=== PATIENT | female | born 1940 | race Caucasian/White ===

== ENCOUNTER 2017-02-21 16:02 | Inpatient (IN) ==
[2017-02-21] MEDS ORDERED: ASPIRIN PO STA (16:06)
[2017-02-21 16:41] LABS: MANUAL DIFF NEEDED? NO
[2017-02-21 16:43] LABS: BASO% 0.4 % (0.0-0.8); EOS# 0.13 X1000 (0.0-0.7); EOS% 1.9 % (0.0-10.0); HEMATOCRIT 37.7 % (37.0-47.0); HEMOGLOBIN 12.4 g/dL (12.0-16.0); LYMPH# 1.15 X1000 (1.2-3.4); MCHC 32.9 g/dL (33-37); MCV 91.1 FL (81-99); MONO# 0.66 X1000 (0.11-0.59); MONO% 9.7 % (1.7-9.3); MPV 11.1 FL (7.4-10.4); PLT 189 X1000 (130-400); RBC 4.14 XMIL (4.2-5.4)
[2017-02-21 16:56] LABS: INR 0.99; PROTIME 10.4 Seconds (9.2-11.7)
--- NOTE | 2017-02-21 16:58 | Diag Imaging Result Document ---
PROCEDURE NAME: CHEST-2 VIEWS - 02/21/2017 FRONTAL AND LATERAL CHEST, 2 VIEWS: FINDINGS: The lungs are well expanded. Mild increased AP diameter to the chest. The heart is not enlarged. The pulmonary vessels are not distended. No pneumonia. No pleural effusions. No free air beneath the diaphragm. IMPRESSION: I believe the patient has emphysema, otherwise negative exam.
[2017-02-21 17:10] LABS: CALCIUM 9.3 mg/dL (8.8-10.2); MAGNESIUM 1.8 mg/dL (1.5-2.7); POTASSIUM 4.2 mmol/L (3.5-5.1); TOTAL BILIRUBIN 0.53 mg/dL (0.20-1.00); TOTAL PROTEIN 6.5 g/dL (6.3-8.3)
--- NOTE | 2017-02-21 17:46 | ED EKG INTERP ---
This chart was entered by Miley Lucia Scribe, acting as scribe for Leonidas Choudhary MD. EKG Interpretation - EKG Time of EKG reading by physician:: 16:11 EKG Read and Signed by:: Leonidas Choudhary EKG Interpretation (*Must complete 3 of following elements*): Abnormal Rate: 58 (nonspecific ST abnormality) Rhythm: sinus bradycardia This chart was documented by the indicated scribe, (Miley Lucia Scribe) and accurately reflects the services I performed and decisions made by me, Leonidas Choudhary MD, as attested by the provider's signature.
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
[2017-02-21] MEDS ORDERED: NS 1,000 ML IV SCH (18:44)
[2017-02-21] MEDS ORDERED: NITROGLYCERIN SL PRN (18:45)
[2017-02-21] MEDS ORDERED: ZOFRAN IV PRN (18:46)
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
[2017-02-21] MEDS: LOVENOX SUBQ SCH (20:39)
[2017-02-21] MEDS: LOPRESSOR PO SCH (20:50)
[2017-02-22 01:07] LABS: CK INDEX 12.2 (0.0-2.5); CK-MB 35.98 ng/mL (0.0-5.0)
[2017-02-22] MEDS ORDERED: PNEUMOVAX 23 IM ONE (01:34)
[2017-02-22 05:33] LABS: MANUAL DIFF NEEDED? NO
[2017-02-22 05:40] LABS: BASO% 0.4 % (0.0-0.8); EOS# 0.16 X1000 (0.0-0.7); HEMATOCRIT 36.4 % (37.0-47.0); HEMOGLOBIN 11.7 g/dL (12.0-16.0); LYMPH# 1.45 X1000 (1.2-3.4); LYMPH% 27.5 % (20.5-51.1); MCH 29.5 PG (27-31); MCHC 32.1 g/dL (33-37); MCV 91.7 FL (81-99); MONO# 0.57 X1000 (0.11-0.59); MONO% 10.8 % (1.7-9.3); MPV 11.8 FL (7.4-10.4); NEUT% 58.3 % (42.2-75.2); PLT 179 X1000 (130-400); RBC 3.97 XMIL (4.2-5.4)
[2017-02-22 06:04] LABS: AGAP 11; BUN 25 mg/dL (8-22); CALCIUM 8.5 mg/dL (8.8-10.2); CHLORIDE 109 mmol/L (98-107); COSMO 294; HDL 51 mg/dL (45-65); LDL 113 mg/dL; POTASSIUM 4.6 mmol/L (3.5-5.1); SODIUM 146 mmol/L (136-145); TCO2 26 mmol/L (25-35); TRIGLYCERIDES 87 mg/dL (35-135); VLDL 17 mg/dL
[2017-02-22 06:18] LABS: FREE T4 0.93 ng/dL (0.93-1.70); VITAMIN D 25 HYDROXY 31.3 NG/DL
[2017-02-22 06:24] LABS: CK INDEX 11.9 (0.0-2.5); CK-MB 31.52 ng/mL (0.0-5.0)
[2017-02-22] MEDS: PRILOSEC PO SCH (06:51)
[2017-02-22] MEDS: LOVENOX SUBQ SCH ×3 (08:46→22:20)
[2017-02-22] MEDS: ASPIRIN EC PO SCH (08:46)
[2017-02-22] MEDS: PRINIVIL PO SCH (08:46)
[2017-02-22] MEDS: LOPRESSOR PO SCH ×2 (08:46→21:43)
--- NOTE | 2017-02-22 14:06 | PROGRESS NOTE ---
DATE: 02/22/2017 SUBJECTIVE: The patient states that she had some mild chest pain overnight and earlier this morning. However right now she is chest pain-free. OBJECTIVE: Vital Signs: Temperature 97.8 degrees, blood pressure 118/48, heart rate 50, respirations 18, O2 saturations 100% on 2 L nasal cannula. General: This is an elderly female sitting up in bed eating breakfast. Head: Normocephalic, atraumatic. Heart: S1, S2. Normal. Regular rate and rhythm. Lungs: Clear to auscultation bilaterally. No wheezes, no rales. No rhonchi. Abdomen: Positive bowel sounds. Soft, nontender, nondistended. Extremities: No edema. No cyanosis. No calf tenderness. Neurologic: The patient is alert oriented x3. LABS: White blood cell count 5.2, hemoglobin 11, hematocrit 36, platelets 179,000. Sodium 146, potassium 4.6, chloride 109, CO2 26, BUN 25, creatinine 0.9, glucose 82. Troponin 0.92. LDL 113, total cholesterol 181. ASSESSMENT AND PLAN: 1. Non ST-elevation myocardial infarction. Continue on the current cardiac medications plus full dose Lovenox. Cardiology has been consulted for further recommendations. The patient is scheduled to undergo an echocardiogram today. 2. Hypertension. Controlled. 3. Gastrointestinal prophylaxis. Continue on Protonix. cc: Marcia Childs MD
[2017-02-23] MEDS: PRILOSEC PO SCH ×2 (05:50→06:29)
[2017-02-23] MEDS: LOVENOX SUBQ SCH (08:10)
[2017-02-23] MEDS: LOPRESSOR PO SCH ×2 (08:10→21:14)
[2017-02-23] MEDS: PRINIVIL PO SCH (08:10)
[2017-02-23] MEDS: ASPIRIN EC PO SCH (08:10)
[2017-02-23 09:38] LABS: AGAP 8; BUN 14 mg/dL (8-22); CHLORIDE 105 mmol/L (98-107); COSMO 282; POTASSIUM 4.5 mmol/L (3.5-5.1); SODIUM 141 mmol/L (136-145); TCO2 28 mmol/L (25-35)
--- NOTE | 2017-02-23 10:06 | ECHO REPORT ---
ORDER DATE: 02/22/2017 ECHOCARDIOGRAM: MEASUREMENTS: Left ventricular end-diastolic diameter 3.5, end systolic diameter 2.3, posterior wall thickness 1.1, septal thickness 0.8, left atrium 4.0, aortic root 2.4. SUMMARY: 1. Adequate quality study. 2. Trileaflet aortic valve demonstrates mild sclerosis and adequate opening with peak gradient of 10 mmHg. There is mild aortic regurgitation. Mitral, tricuspid, and pulmonic valves are without obstruction abnormality with trace mitral regurgitation and moderate tricuspid regurgitation. The estimated systolic PA pressure by Doppler is 45-50 mmHg. The aortic root is normal size. 3. Normal left ventricular dimensions demonstrated. Estimated left ventricular ejection fraction is 40%-45%. There is akinesis of the mid anteroseptal region, apical septum, apical anterior wall, and apex. Left atrium is borderline enlarged. Right atrium and right ventricle are of normal size with normal right ventricular systolic function. 4. No pericardial effusion. 5. Appearance of inferior vena cava suggests normal central venous pressure. 6. Sinus rhythm during study. CONCLUSIONS: 1. Aortic valve sclerosis without stenosis with mild aortic regurgitation. 2. Moderate tricuspid regurgitation with moderate pulmonary hypertension by Doppler. 3. Estimated left ventricular ejection fraction 40%-45% with akinesis in the mid anteroseptal region, apical septum, apical anterior wall, and apex. 4. Borderline left atrial enlargement. cc: MD Marcia Deutsch MD
--- NOTE | 2017-02-23 13:52 | PROGRESS NOTE ---
DATE: 02/23/2017 SUBJECTIVE: The patient is resting comfortably in bed. She denies having any shortness of breath or chest pain. OBJECTIVE: Vital Signs: Temperature 98 degrees, blood pressure 131/65, heart rate 57, respirations 18, O2 saturations 98% on 2 L nasal cannula. General: This is an elderly female lying in bed in no acute distress. Head: Normocephalic, atraumatic. Heart: S1, S2. Normal. Bradycardic. Lungs: Clear to auscultation bilaterally. No wheezes, no rales. No rhonchi. Abdomen: Positive bowel sounds. Soft, nontender, nondistended. Extremities: No edema. No cyanosis. No calf tenderness. Neurologic: The patient is alert, oriented x3. LABS: Sodium 141, potassium 4.5, chloride 105, CO2 28, BUN 14, creatinine 0.8, glucose 105. ASSESSMENT AND PLAN: 1. Non ST-elevation myocardial infarction. Continue on the current cardiac medications. Cardiology has been consulted. 2. Hypertension. Controlled. 3. Gastrointestinal prophylaxis. Continue on Protonix. cc: Marcia Childs MD
[2017-02-23] MEDS ORDERED: LOVENOX SUBQ ONE (18:00)
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
[2017-02-24] MEDS: NS 1,000 ML IV SCH ×3 (05:14→17:08)
[2017-02-24] MEDS: PRILOSEC PO SCH ×2 (05:15→06:35)
[2017-02-24 05:30] LABS: MANUAL DIFF NEEDED? NO
[2017-02-24 05:47] LABS: BASO% 0.3 % (0.0-0.8); EOS# 0.24 X1000 (0.0-0.7); EOS% 2.3 % (0.0-10.0); HEMATOCRIT 43.5 % (37.0-47.0); HEMOGLOBIN 14.3 g/dL (12.0-16.0); IMM GRAN# 0.02 X1000 (0.0-0.04); IMM GRAN% 0.2 % (0.0-0.5); LYMPH# 1.78 X1000 (1.2-3.4); LYMPH% 17.2 % (20.5-51.1); MCHC 32.9 g/dL (33-37); MCV 91.2 FL (81-99); MONO# 0.94 X1000 (0.11-0.59); MONO% 9.1 % (1.7-9.3); MPV 11.8 FL (7.4-10.4); NEUT% 70.9 % (42.2-75.2); PLT 200 X1000 (130-400); RBC 4.77 XMIL (4.2-5.4)
[2017-02-24 05:53] LABS: AGAP 11; ALBUMIN 3.8 g/dL (3.5-5.0); ALKALINE PHOSPHATASE 56 U/L (32-104); BUN 16 mg/dL (8-22); CALCIUM 9.1 mg/dL (8.8-10.2); CHLORIDE 104 mmol/L (98-107); COSMO 286; GOT 31 U/L (10-30); GPT 15 U/L (10-36); POTASSIUM 4.6 mmol/L (3.5-5.1); SODIUM 143 mmol/L (136-145); TCO2 28 mmol/L (25-35); TOTAL PROTEIN 6.7 g/dL (6.3-8.3)
--- NOTE | 2017-02-24 06:01 | EKG Report ---
Test Performed on : 02/22/2017 05:59:15 AM Test Reason : chest pain Blood Pressure : / mmHG Vent. Rate : 056 BPM Atrial Rate : 056 BPM P-R Int : 148 ms QRS Dur : 080 ms QT Int : 444 ms P-R-T Axes : 074 020 -21 degrees QTc Int : 428 ms Sinus bradycardia. with sinus arrhythmia. Otherwise normal ECG When compared with ECG of 21-FEB-2017 23:23, (Unconfirmed) No significant change was found Confirmed by Blanca JOHNSON, Mac English ([id number]) on 02/24/2017 9:00:35 AM
--- NOTE | 2017-02-24 07:12 | EKG Report ---
Test Performed on : 02/21/2017 11:23:21 PM Test Reason : Increased troponin Blood Pressure : / mmHG Vent. Rate : 057 BPM Atrial Rate : 057 BPM P-R Int : 150 ms QRS Dur : 084 ms QT Int : 440 ms P-R-T Axes : 064 036 -18 degrees QTc Int : 428 ms Sinus bradycardia. with marked sinus arrhythmia. Otherwise normal ECG When compared with ECG of 21-FEB-2017 18:12, (Unconfirmed) No significant change was found Confirmed by Blanca JOHNSON, Mac English ([id number]) on 02/24/2017 8:59:04 AM
--- NOTE | 2017-02-24 07:16 | EKG Report ---
Test Performed on : 02/21/2017 4:11:00 PM Test Reason : Chest Pain Blood Pressure : / mmHG Vent. Rate : 058 BPM Atrial Rate : 058 BPM P-R Int : 152 ms QRS Dur : 080 ms QT Int : 432 ms P-R-T Axes : 063 007 010 degrees QTc Int : 424 ms Sinus bradycardia. Nonspecific ST abnormality Abnormal ECG No previous ECGs available Unconfirmed Result
--- NOTE | 2017-02-24 07:16 | EKG Report ---
Test Performed on : 02/21/2017 6:12:38 PM Test Reason : CP Blood Pressure : / mmHG Vent. Rate : 055 BPM Atrial Rate : 055 BPM P-R Int : 156 ms QRS Dur : 082 ms QT Int : 434 ms P-R-T Axes : 061 007 003 degrees QTc Int : 415 ms Sinus bradycardia. Otherwise normal ECG When compared with ECG of 21-FEB-2017 16:11, (Unconfirmed) No significant change was found Unconfirmed Result
[2017-02-24] MEDS: LOPRESSOR PO SCH ×2 (08:14→21:42)
[2017-02-24] MEDS: ASPIRIN EC PO SCH (08:14)
[2017-02-24] MEDS: PRINIVIL PO SCH (08:14)
--- NOTE | 2017-02-24 08:27 | Diag Imaging Result Document ---
PROCEDURE NAME: CHEST-PORTABLE - 02/24/2017 AP PORTABLE CHEST, 02/24/2017 AT 0500 HOURS: FINDINGS: The inspiration is somewhat suboptimal. There is no evidence of acute cardiac or pulmonary disease and, compared to 02/21/2017, there has been no significant change. IMPRESSION: Stable chest.
[2017-02-24] MEDS ORDERED: HEPARIN 1000 UNITS/NS 2,000 UNIT/1,000 ML IV.SOLN ONE (09:12)
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
[2017-02-24] MEDS ORDERED: VERSED ONE (10:22)
[2017-02-24] MEDS ORDERED: DEMEROL ONE (10:22)
[2017-02-24] MEDS: MORPHINE IV PRN ×2 (11:36→21:42)
--- NOTE | 2017-02-24 12:12 | EKG Report ---
Test Performed on : 02/24/2017 11:53:16 AM Test Reason : post cath Blood Pressure : / mmHG Vent. Rate : 058 BPM Atrial Rate : 058 BPM P-R Int : 160 ms QRS Dur : 082 ms QT Int : 404 ms P-R-T Axes : 057 018 066 degrees QTc Int : 396 ms Sinus bradycardia. with sinus arrhythmia. Nonspecific T wave abnormality (lateral flattening) Abnormal ECG When compared with ECG of 22-FEB-2017 05:59, Nonspecific T wave abnormality no longer evident in Inferior leads Confirmed by Blanca JOHNSON, Mac English ([id number]) on 02/24/2017 7:00:56 PM
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
--- NOTE | 2017-02-25 00:10 | PROGRESS NOTE ---
DATE: 02/24/2017 CARDIOLOGY FOLLOWUP NOTE: SUBJECTIVE: The patient underwent cardiac catheterization and coronary angiography today, demonstrating smooth, eccentric, moderate stenosis in [id number] LAD. There is also akinesis of [id number] anterior wall, with the true apex contractility preserved. Patient continues without further chest discomfort or dyspnea. OBJECTIVE: Vital Signs: Blood pressure 127/63, heart rate 62 and regular. Neck: There is no significant jugular venous distention. Chest: Clear to auscultation. Cardiac: Reveals a regular rate and rhythm, without appreciable murmur or gallop. There is no evidence of peripheral edema. IMPRESSION: 1. Recent angina symptoms, with associated wall motion abnormality, in left anterior descending coronary artery. Angiography demonstrates moderate eccentric focal narrowing, which appears smooth, in the [id number] left anterior descending coronary artery, which does not appear to be flow limiting. 2. Hypertension. 3. Mild hypercholesterolemia. RECOMMENDATIONS: 1. Medical management of coronary atherosclerosis, most likely course of management. 2. Will determine functional significance of stenosis in left anterior descending coronary artery with pharmacologic myocardial perfusion study. cc: Kilo Chao MD
[2017-02-25] MEDS: PRILOSEC PO SCH (06:07)
[2017-02-25 06:14] LABS: AGAP 8; BUN 14 mg/dL (8-22); CALCIUM 8.3 mg/dL (8.8-10.2); CHLORIDE 102 mmol/L (98-107); COSMO 276; MAGNESIUM 1.7 mg/dL (1.5-2.7); POTASSIUM 3.9 mmol/L (3.5-5.1); SODIUM 138 mmol/L (136-145); TCO2 28 mmol/L (25-35)
[2017-02-25 08:05] VITALS: BP 125/51
[2017-02-25] MEDS: ASPIRIN EC PO SCH (08:05)
[2017-02-25] MEDS: PRINIVIL PO SCH (08:06)
[2017-02-25] MEDS ORDERED: LEXISCAN ONE (12:19)
[2017-02-25] MEDS ORDERED: AMINOPHYLLINE ONE (12:36)
[2017-02-25] MEDS: LOPRESSOR PO SCH (13:44)
--- NOTE | 2017-02-25 15:14 | PROGRESS NOTE ---
DATE: 02/25/2017 SUBJECTIVE: The patient reports no chest pain. No difficulty in breathing. No palpitations. Patient able to walk around. No chest pain noted. OBJECTIVE: Vital Signs: Temperature 98.2 degrees, heart rate 56, respiratory rate 20, blood pressure 125/51, O2 saturation 96% on room air. General Examination: This is a 76-year-old female, lying in bed in no acute distress. HEENT: Head is normocephalic, atraumatic. Anicteric sclerae and pale conjunctivae. Mucous membranes moist. Neck: Supple. No JVD noted. No carotid bruits. No lymphadenopathy. No thyromegaly. Cardiovascular exam: S1, S2 heard. No murmurs, gallops, or rubs. Regular rate and rhythm. Respiratory exam: Clear bilaterally to auscultation. No work of breathing or using accessory muscles. Abdomen: Soft, nontender to palpation. Bowel sounds present. No organomegaly. Extremities: No clubbing, cyanosis, or edema. Peripheral pulses present in both legs. Neurological exam: Patient alert and oriented x3. Able to move 4 extremities. Cranial nerves 2-12 grossly normal. LABORATORY DATA: Data reviewed. ASSESSMENT AND PLAN: 1. Chest pain. Patient had a left heart catheterization yesterday, and there was a suspicion for Takotsubo cardiomyopathy. The results showed left anterior descending moderate eccentric focal narrowing, so Dr. Chao from cardiology is planning to do myocardial perfusion test to see functional significance of that stenosis. We will continue to follow with their recommendations. 2. Hypertension. Blood pressure is under control. We will continue with the same management. 3. Gastrointestinal prophylaxis. We will continue with Protonix. cc: Adilson Patel MD
--- NOTE | 2017-02-25 17:12 | PROGRESS NOTE ---
DATE: 02/25/2017 SUBJECTIVE: Patient continues without chest discomfort or dyspnea. She relates feeling well. OBJECTIVE: Vital Signs: Blood pressure 125/51, heart rate 56 and regular, oxygen saturation 96% on room air. The ECG monitor shows sinus rhythm without arrhythmias. There is no significant jugular venous distention. Chest: Clear to auscultation. Cardiac Exam: Reveals a regular rate and rhythm without appreciable murmur or gallop. There is no evidence of peripheral edema. Lexiscan sestamibi study demonstrates fixed defect in the apical anterior wall. Left ventricle ejection fraction normal. There is no reversible defects. Perfusion of the apex appears normal. IMPRESSION: 1. Recent small non ST elevation myocardial infarction possibly takotsubo. 2. Moderate stenosis in proximal to mid LAD. Stenosis would appear not to be functionally significant given lack of perfusion abnormality in left ventricular apex. 3. Mild hypercholesterolemia. 4. Hypertension. RECOMMENDATIONS: 1. Continue medical management. 2. Add Lipitor 40 mg daily. 3. Reasonable to discharge the patient on medical therapy. 4. Follow up with me in approximately 3 weeks after discharge. cc: Kilo Chao MD
--- NOTE | 2017-02-25 18:04 | Diag Imaging Result Document ---
PROCEDURE NAME: MYOCARDIAL PERF SCAN, STR/REST - 02/24/2017 LEXISCAN SESTAMIBI: SUMMARY: The patient was administered 11.2 millicuries of technetium-99m sestamibi, after which resting cardiac images were obtained. The patient was subsequently administered Lexiscan, after which the heart rate went from 72 beats per minute to 96 beats per minute. The blood pressure went from 161/73 to 156/60. With Lexiscan, the patient reported some low-grade chest tightness. Following administration of Lexiscan, the patient was administered 34.2 millicuries of Tc-99m sestamibi after which gated stress cardiac images were obtained. Following the administration of sestamibi, the patient was administered aminophylline 125 mg intravenously. Baseline ECG demonstrates sinus rhythm and was within normal limits. With Lexiscan, the patient demonstrated some transient mild (approximately 0.5 to 1 mm) ST-segment depression in the inferior and lateral precordial leads which returned to baseline in recovery. SPECT images were reconstructed in the short, horizontal, and vertical axes. Review of these images demonstrated medium-sized defect in the apical anterior wall on stress images which appears unchanged on resting images. Gated images demonstrate a calculated left ventricular ejection fraction of 73% with relative mild hypokinesis in the apical anterior wall. CONCLUSIONS: 1. Adequate response to Lexiscan. 2. Mild chest tightness with Lexiscan. 3. ECG following administration of Lexiscan demonstrated some borderline ST-segment changes in the inferior and lateral precordial leads, which returned to baseline after aminophylline. 4. Lexiscan sestamibi images demonstrate fixed defect in the apical anterior wall with corresponding mild hypokinesis suggestive of previous infarction in this area. There was no convincing scintigraphic evidence of inducible myocardial ischemia. Normal left ventricular ejection fraction demonstrated. cc: Kilo Chao MD
[2017-02-25] MEDS ORDERED: LIPITOR PO SCH (21:00)
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
== END 2017-02-25 17:25 | disposition home or self-care (01) ==
LOC: ED 16:02 → SUATTDRO 21:23 → 3S 21:23
PROVIDERS: ATTEND Internal Medicine